=== PATIENT | female | born 1995 | race African-American/Black ===

== ENCOUNTER → 2018-02-09 | Outpatient (CLI) | payer OTHER, SELFPAY ==
[~2018-02-09] MED LIST: METHACHOLINE KIT (J7674) INH
== END ==
LOC: M CARPUL 10:33
DX: R06.02 Shortness of breath (principal)
CPT/HCPCS: J7674

== ENCOUNTER → 2018-07-23 | Outpatient (CLI) | payer OTHER | LOC: M RAD 14:00 | DX: G43.901 Migraine, unspecified, not intractable, with status migrainosus (principal) | CPT/HCPCS: 70450 ==